=== PATIENT | female | born 1960 | race Asian ===

== ENCOUNTER 2018-04-20 22:22 | Inpatient (IN) | payer OTHER ==
[2018-04-20] MEDS ORDERED: NS 1,000 ML IV ONE (22:31)
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
[2018-04-20 22:43] LABS: PLATELET COUNT 252 10^3/uL (150-400)
[2018-04-20] MEDS ORDERED: IOPAMIDOL (ISOVUE 370) 100 ML BTL IV ONE (22:44)
[2018-04-20] MEDS ORDERED: HYDROmorphONE/DILAUDID 2 MG/ML INJ IVP ONE ×2 (22:56→23:58)
[2018-04-21] MEDS ORDERED: ONDANSETRON 4 MG/2 ML VIAL IVP ONE (00:26)
[2018-04-21] MEDS ORDERED: LIDOCAINE 2% JELLY 20 ML (UROJECT) ONE (01:10)
[2018-04-21] MEDS ORDERED: BENZOCAINE UNIT DOSE SPRAY HURRICAINE MM ONE ×2 (01:10→01:12)
[2018-04-21] MEDS ORDERED: LORazepam 2 MG/ML INJ ONE (01:10)
[2018-04-21] MEDS ORDERED: LIDOCAINE 2% JELLY 20 ML (UROJECT) UR ONE (01:11)
[2018-04-21] MEDS ORDERED: LORazepam 2 MG/ML INJ IVP ONE ×2 (01:12→20:52)
[2018-04-21] MEDS ORDERED: D5W 1/2 NS W/ 20 KCl/L 1,000 ML IV SCH (01:15)
[2018-04-21] MEDS: HYDROmorphONE/DILAUDID 1 MG/ML INJ IVP PRN ×4 (03:01→12:47)
[2018-04-21] MEDS: CEPACOL LOZENGE PO PRN ×5 (03:03→21:55)
[2018-04-21] MEDS: ONDANSETRON 4 MG/2 ML VIAL IVP PRN ×3 (03:09→12:47)
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
[2018-04-21 05:36] LABS: PLATELET COUNT 201 10^3/uL (150-400)
[2018-04-21] MEDS ORDERED: PROCHLORPERAZINE MALEATE 25 MG SUPPR PR PRN (11:52)
[2018-04-21] MEDS ORDERED: LR 1,000 ML IV SCH (12:00)
--- NOTE | 2018-04-21 12:02 | SOAPPROG ---
SOAP Progress Note Assessment/Plan: PAD#1 04/21/2018 Assessment: Feels better but no flatus yet. VSS. Afebrile, only 200+cc out NG since admission Abd xray shows some gas in cecum. Glucose up ( will switch to LR). % Neutrophils up Abdomen less tender and rare bowel sounds noted. I feel that she is stable and certainly not worse. Plan: Continue current treatment plan. Subjective: No flatus, c/o NG irritation ( nose and throat) Objective: Vital Signs Temp Pulse Resp BP Pulse Ox 36.6 C 67 16 104/55 L 98 04/21/18 07:49 04/21/18 07:49 04/21/18 07:49 04/21/18 07:49 04/21/18 07:49 Laboratory Results 04/21/18 04:39 04/21/18 04:39 04/20/18 04/21/18 04/22/18 05:59 05:59 05:59 Intake Total 1000 Output Total 100 Balance 900 - Time Spent With Patient Time Spent With Patient: 25 Physical Exam - Physical Exam General Appearance: WD/WN, alert, mild distress EENT: other (NG tube in place) Neck: full range of motion, supple Respiratory: lungs clear, normal breath sounds Cardiac/Chest: regular rate, rhythm Abdomen: non-tender, soft, other (hypoactive BS) Pelvic Exam: deferred Rectal: deferred Back: Normal inspection Skin: normal color, warm/dry Extremities: normal range of motion, non-tender, normal inspection Neuro/Psych: no motor/sensory deficits, alert, normal mood/affect, oriented x 3 ICD10 Worksheet Patient Problems: Problems Problem Status Onset Abdominal pain Acute Small bowel obstruction Acute Vomiting Acute
--- NOTE | 2018-04-21 13:33 | PDMN ---
Medical Necessity Medical necessity: Pt meets INPT criteria per MD as of 04/21/18 and MCG M-210 Intestinal Obstruction (est. LOS >2 MN for SBO).
[2018-04-21] MEDS ORDERED: CARBOXYMETHYLCELLULOSE 1% 0.4 ML DROPERETTE EACHEYE PRN (15:36)
[2018-04-21] MEDS ORDERED: SCOPOLAMINE HYDROBROMIDE 1 MG/3 DAYS PATCH TD SCH (15:45)
--- NOTE | 2018-04-21 15:48 | ASMTCMCOM ---
CM Note CM Note Notes: Pt admitted to hospital with a sbo, an NG tube was placed. Met with pt, she lives at home with a friend/roomate, she is otherwise independent and will dc home when medicallys stable. CM available for any changes. DC Plan: Independent Date Signed: 04/21/2018 03:47 PM Electronically Signed By:Stacey Flores RN
[2018-04-22] MEDS: CEPACOL LOZENGE PO PRN ×3 (03:55→11:56)
[2018-04-22 06:16] LABS: PLATELET COUNT 180 10^3/uL (150-400)
[2018-04-22] MEDS ORDERED: D5W 1/2 NS W/ 20 KCl/L 1,000 ML IV SCH (07:15)
--- NOTE | 2018-04-22 08:49 | SOAPPROG ---
SOAP Progress Note Assessment/Plan: Assessment/Plan: This is a 57-year-old patient with history of multiple abdominal operations who presented with partial small-bowel obstruction. The patient has undergone nasogastric tube decompression with some success. She has begun to pass flatus. NG tube overnight less than 400 cc. Mild nausea partially helped with Zofran. Patient refused a suppository for antiemetic. Overall minimal complaints this morning. White blood cell count down to 8 with less of a shift Afebrile vital signs stable Regular rate and rhythm Clear to auscultation Abdomen soft minimally tender nondistended. Node peritoneal signs. Well- healed surgical incisions Extremities without edema Impression/plan: Slow return of bowel function. Await abdominal x-rays likely clamp NG tube and start clears this morning. If she has good success with this NG tube may be discontinued with advancement of diet. Discussed with patient and nursing staff. All questions were addressed. IV site from the ED still good unable to get another access will continue this IV for now. 04/22/18 08:46 Objective: Vital Signs Temp Pulse Resp BP Pulse Ox 36.8 C 63 14 98/61 L 91 L 04/22/18 07:49 04/22/18 07:49 04/22/18 07:49 04/22/18 07:49 04/22/18 07:49 Laboratory Results 04/22/18 05:19 04/22/18 05:19 04/21/18 04/22/18 04/23/18 05:59 05:59 05:59 Intake Total 1000 Output Total 100 950 Balance 900 -950 ICD10 Worksheet Patient Problems: Problems Problem Status Onset Abdominal pain Acute Small bowel obstruction Acute Vomiting Acute
[2018-04-22] MEDS ORDERED: LORazepam 2 MG/ML INJ IVP ONE (20:04)
[2018-04-22] MEDS ORDERED: TEMAZEPAM 15 MG CAP PO ONE (22:15)
[2018-04-23 06:08] LABS: PLATELET COUNT 173 10^3/uL (150-400)
--- NOTE | 2018-04-23 09:07 | SOAPPROG ---
SOAP Progress Note Assessment/Plan: PAD#1 04/21/2018 Assessment: Feels better but no flatus yet. VSS. Afebrile, only 200+cc out NG since admission Abd xray shows some gas in cecum. Glucose up ( will switch to LR). % Neutrophils up Abdomen less tender and rare bowel sounds noted. I feel that she is stable and certainly not worse. Plan: Continue current treatment plan. 04/23/18 09:04 Assessment: SBO resolved, passing flatus, no stool yet, taking clear liquids Plan: advance diet Subjective: I feel much better. No stool yet Objective: Vital Signs Temp Pulse Resp BP Pulse Ox 36.6 C 62 16 98/59 L 96 04/23/18 07:40 04/23/18 07:40 04/23/18 07:40 04/23/18 07:40 04/23/18 07:40 Laboratory Results 04/23/18 05:25 04/23/18 05:25 04/22/18 04/23/18 04/24/18 05:59 05:59 05:59 Intake Total 600 Output Total 950 800 Balance -950 -200 - Time Spent With Patient Time Spent With Patient: 15 Physical Exam - Physical Exam General Appearance: WD/WN, alert, no apparent distress Respiratory: chest non-tender, lungs clear, normal breath sounds Cardiac/Chest: regular rate, rhythm Abdomen: normal bowel sounds, non-tender, soft Pelvic Exam: deferred Rectal: deferred Back: Normal inspection Skin: normal color, warm/dry Extremities: normal range of motion, non-tender Neuro/Psych: no motor/sensory deficits, alert, normal mood/affect, oriented x 3 ICD10 Worksheet Patient Problems: Problems Problem Status Onset Abdominal pain Acute Small bowel obstruction Acute Vomiting Acute
[2018-04-23 14:53] VITALS: BP 99/46
--- NOTE | 2018-04-23 14:55 | ASMTLACE ---
LACE Length of stay for Answers: Less than 1 day current admission Acuity / Level of Answers: Yes Care: Did the patient have an inpatient admission? Comorbidities - select Answers: Opioid dependence all that apply / Chronic pain Other Notes: Hx of renal cell carcinoma # of Emergency department Answers: 1-2 visits in the last 6 months Score: 9 Date Signed: 04/23/2018 02:55 PM Electronically Signed By:Joann Astorga RN
--- NOTE | 2018-04-23 15:16 | ASDISCHSUM ---
Discharge Information Plan Status:Home with No Needs Medically Cleared to Leave:04/22/2018 Discharge Date:04/22/2018 CM D/C Disposition:Home, Routine, Self-Care ADT D/C Disposition:Home, Routine, Self-Care Projected Discharge Date:04/22/2018 Transportation at D/C:Friend Discharge Delay Reason: Follow-Up Date:04/22/2018 Discharge Slot:2 - 12:01 pm - 18:00 pm Final Diagnosis:Small bowel obstruction, hx TBI, headaches, concussion Placement Information Patient Contact Information Contact Name:AD Relationship:Friend Address:[address] Work Phone: [facility]:[place] Alternate Phone: [facility]/Zip Code:[place] [address] Email: Financial Information Financial Class:Medicare Primary Plan Desc:MEDICARE INPATIENT Primary Plan Number:[id number] Secondary Plan Desc:[employer] Secondary Plan Number:[id number] Assessment Information LACE LACE Length of stay for Answers: Less than 1 day current admission Acuity / Level of Answers: Yes Care: Did the patient have an inpatient admission? Comorbidities - select Answers: Opioid dependence all that apply / Chronic pain Other Notes: Hx of renal cell carcinoma # of Emergency department Answers: 1-2 visits in the last 6 months Score: 9 Date Signed: 04/23/2018 02:55 PM Electronically Signed By:Joann Astorga RN [facility] CM Progress Note CM Note CM Note Notes: Pt admitted to hospital with a sbo, an NG tube was placed. Met with pt, she lives at home with a friend/roomate, she is otherwise independent and will dc home when medicallys stable. CM available for any changes. DC Plan: Independent Date Signed: 04/21/2018 03:47 PM Electronically Signed By:Stacey Flores RN Case Management Discharge Plan Note Case Management Discharge Discharge Order Complete? Answers: Yes Patient to Obtain Answers: Independently Medications Transportation Arranged Answers: Family/Friends Transport will Pick (Date 04/23/2018 12:00 AM & Time) EMTALA Complete Answers: No Notes: N/A Case Management Transport Answers: No Notes: N/A Form Complete Faxed Final Orders Answers: No Notes: N/A Agency/Facility Transfer Answers: No Notes: N/A Report Printed & Faxed to Receiving Agency Family Notified Answers: No Notes: Pt notified friend/roommate Discharge Comments Notes: Reviewed chart. Pt to discharge home independently with friend support and no identified needs. No therapies ordered. Pt to follow up as directed. IM signed, copy placed in chart. CM available for any further issues or concerns. Discharge Plan: Home independently Date Signed: 04/23/2018 02:59 PM Electronically Signed By:Joann Astorga RN Intervention Information Intervention Type:*IM-Signed Date of Service:04/23/2018 03:15 PM Patient Type:Inpatient Staff Member:AMBER Astorga Taylor Hours: Discipline: Severity: Comment:
--- NOTE | 2018-04-24 02:55 | GDS ---
DISCHARGE DIAGNOSIS: Bowel obstruction, presumably secondary to adhesions, resolved. DISPOSITION: Home to self care. CONDITION: Good. DIET: She is to avoid constipating foods such as bananas, rice, applesauce, and cheese. I suggested that she consume more frequent and smaller meals during the course of the day. DISCHARGE MEDICATIONS: She will continue her herbal supplements. She will take Restoril as needed for sleep 30 mg p.o. q.h.s. She uses Flexeril 5 mg 3 times a day for muscle spasms. She uses Imitrex 100 mg daily as needed for migraines and she uses carboxymethylcellulose 1% (Refresh Celluvisc) 1 drop each eye as needed for dry eyes. ACTIVITY: She is to avoid constipating foods such as bananas, rice, applesauce , and cheese. FOLLOWUP: She will follow up with Dr. Jacob Nicholas's office on an as-needed basis. HOSPITAL COURSE: The patient was admitted and placed on nasogastric suction. She began to pass gas, has continued to do so. She has tolerated clear liquids and now regular diet. She still has not had a bowel movement, but she feels absolutely back to normal at this point. I feel comfortable discharging her at this time. She is instructed that should she have any obstructive symptoms, she is to return to the ER for re-evaluation. /[id number]/MODL MTDD
== END 2018-04-23 16:36 | disposition home or self-care (01) | DRG 390 ==
LOC: EDUNIT# → F3E 04-21 02:13
PROVIDERS: ADMIT Surgery; ATTEND Surgery
DX: K56.51 Intestinal adhesions [bands], with partial obstruction (principal); Z85.528 Personal history of other malignant neoplasm of kidney; Z90.5 Acquired absence of kidney; Z87.820 Personal history of traumatic brain injury; M54.9 Dorsalgia, unspecified; G43.909 Migraine, unspecified, not intractable, without status migrainosus
CPT/HCPCS: 96374; J1170; J2060; J2405; Q9967